=== PATIENT | male | born 1980 | race Caucasian/White ===

== ENCOUNTER 2024-08-22 06:21 | Day surgery (SDC) | payer OTHER, SELFPAY | END 2024-08-22 12:22 | disposition home or self-care (01) | LOC: GI 06:21 | PROVIDERS: ATTENDING PHYSICIAN Surgery; FAMILY PHYSICIAN Internal Medicine | DX: Z12.11 Encounter for screening for malignant neoplasm of colon (principal) | CPT/HCPCS: G0121 ==

== ENCOUNTER → 2024-11-19 07:59 | Outpatient (REF) | payer OTHER, SELFPAY | LOC: RAD 07:59 | PROVIDERS: ATTENDING PHYSICIAN Specialist; FAMILY PHYSICIAN Internal Medicine | DX: N40.1 Benign prostatic hyperplasia with lower urinary tract symptoms (principal) | CPT/HCPCS: 76872 ==